=== PATIENT | female | born 1985 | race Caucasian/White ===

== ENCOUNTER 2018-10-30 00:14 | Inpatient (IN) | payer BC ==
[2018-10-30] MEDS ORDERED: Witch Hazel PAD* JAR ONE (01:07)
[2018-10-30] MEDS ORDERED: Dibucaine 1% 28.35 GM TUBE ONE (01:07)
[2018-10-30] MEDS ORDERED: Witch Hazel PAD* JAR TOPICAL PRN (01:17)
[2018-10-30] MEDS ORDERED: Glycerin ADULT SUPP PR PRN (01:17)
[2018-10-30] MEDS ORDERED: Dibucaine 1% 28.35 GM TUBE PR PRN (01:17)
[2018-10-30] MEDS ORDERED: OXYTOCIN* 10 UNITS/ML 1 ML VIAL IM ONE (01:17)
[2018-10-30] MEDS ORDERED: OXYTOCIN* 10 UNITS/ML 1 ML VIAL ONE (01:20)
--- NOTE | 2018-10-30 01:25 | HP ---
General Information - Reason for Visit Active labor - General Information Maternal Age: 33 Grav: 1 Para: 0 SAB: 0 IEA: 0 Estimated Due Date: 11/01/18 Determined By: LMP Gestational Age in Weeks/Days: 39-5/7 Maternal Blood Type and Rh: A Positive - Results this Serology/RPR Result: Non-Reactive Rubella Result: Immune HBsAg Result: Negative HIV Result: Negative GBS Culture Result: Negative Past Medical History Delivery History: Hx Uncomplicated Vaginal Delivery Delivery History Comment: 06/2016 7lb 11oz female at [facility] with Asia Diaz LM Pertinent Past Medical History: See Records Past Medical History Comment: Hypothyroidism on replacement Bi-polar disorder. Followed by psychiatry. On lamotrigine Pertinent Past Surgical History: See Records Past Surgical History Comment: H/O wisdom tooth extraction and appendectomy Pertinent Family History: See Records Family History Comment: Father: , DM PGM: , Cancer PGF: , heart disease MGM: , heart disease - Antepartal Records Antepartal Records: Reviewed, Uncomplicated Review of Systems Constitutional: Uncomfortable CV Complaint: No Respiratory: Shortness of Breath: No Gastrointestinal: No Nausea/Vomiting, Normal Bowel Movement Genitourinary: No Dysuria, No Bleeding, No Leaking Fluid Musculoskeletal: Back Pain, Contractions, Pressure Neurological: No Headache, No Visual Changes Movement: Normal Exam Allergies/Adverse Reactions: Allergies No Known Allergies Allergy (Verified 06/20/16 22:31) Difficult to assess on arrival as delivery imminent - Measurements Height: 5 ft 6 in Weight: 195 lb Body Mass Index (BMI): 31.4 Pre- Weight: 150 lb - Exam Breast: Breast Exam Deferred CVA: No CVA Tenderness Extremities: No Edema Heart: Normal Rhythm/Heart Sounds HEENT: No Significant Findings Lungs: Clear Bilaterally Rectal: Rectal Exam Deferred Reflexes: DTR 2+ Thyroid: No Thyromegaly - Abdominal Exam Abdomen Exam: Non-Tender Targeted Exam Findings See L&D Outpatient Visit Provider Note for Findings: N/A Estimated Weight: EFW 8.5-9lbs Cervical Exam: 8cm, 9cm Effacement: 100% Station: 0 Presenting Part: Vertex Membrane Status: Bulging Sterile Speculum Exam: Not done Bleeding/Discharge: None EFM Findings - External Monitor Findings Baseline Heart Rate: 125 External Monitor Findings: Accelerations Present, Variability Moderate, Variable or Late Deceleration Pattern Present External Monitor Findings Comment: Baseline 125bpm on arrival. Variables with UCs following SROM Contractions: Regular, Strong Contraction Frequency: q 2 min Assessment/Plan - Assessment IUP at 39-5/7 in active labor Category II FHT, doubt metabolic acidemia as delivery imminent - Plan Plan: Admit - Anticipate Vaginal Delivery Plan Comment: P: Admit. Anticipate - Date/Time of Admission Date of Admission: 10/30/18 Time of Admission: 00:24
--- NOTE | 2018-10-30 01:45 | PROCNOTE ---
[facility] OB: Delivery Note - Delivery A Date of : 10/30/18 Time of : 00:42 [place] Sex: Male Weight at : 9 lb Score 1 Minute: 4 Score 5 Minutes: 9 - 9 @ 10 min Gestational Age in Weeks and Days at Delivery: 39 Weeks and 5 Days Delivery Method: Spontaneous Vaginal Labor: Spontaneous Did Patient attempt ?: N/A, No Previous Amniotic Fluid: Clear Estimated Blood Loss: 300 Anesthesia/Analgesia: Nitrous-Labor Delivered By: Tess Connolly - Nursery Level of Nursery: Regular/Bedside - Perineum Perineal Injury: 2nd Degree - repaired with 3-0 Rapide under local infiltration 1% lidocaine. Anatomy restored and good hemostasis achieved. Pt tolerated well - Events Delivery Events of Note: Pitocin Only After Delivery - Additional Delivery Notes Additional Delivery Notes: Pt admitted in active labor. Spontaneous rupture of membranes to clear fluid led to onset pushing. Length of active labor 2 hours, 26 min. Pushed x 11 min. liveborn male. Slow, controlled delivery of head. OA to AMIRAH. Shoulders did not deliver. Shoulder dystocia identified. Pt to Guevara position. Hooper corkscrew done and then posterior arm released with resolution of dystocia. Time from delivery of head to delivery of body 50 seconds. initially stunned. After cord milked, cord clamped x 2 and cut. [place] transferred to special care nurse at the warmer. Tactile stimulation, bulb and wall suction, O2 by mask and CPAP x 30 seconds. Apgars 4/9/9. Good bilateral movement of upper extremities noted. returned to maternal abdomen. Spontaneous delivery intact placenta. Trailing membranes appeared complete. Fundus firm to massage. 10units IM pitocin given. Minimal bleeding noted. Repair as above. EBL 300mL. At time of note mother and infant in stable condition. Breast feeding initiated.
[2018-10-30] MEDS ORDERED: Lactated Ringers 1000 ML Bag* 1,000 ML IV SCH (02:00)
[2018-10-30] MEDS: Ibuprofen TAB* 600 MG PO PRN ×4 (02:49→21:23)
[2018-10-30] MEDS ORDERED: Simethicone TAB* 80 MG TAB.CHEW PO SCH (08:30)
[2018-10-30] MEDS ORDERED: Levothyroxine TAB* 25 MCG TAB ONE (08:43)
[2018-10-30] MEDS: Docusate CAP* 100 MG PO SCH ×3 (08:49→21:22)
[2018-10-30] MEDS: Acetaminophen TAB* 325 MG PO PRN ×2 (17:22→21:23)
[2018-10-30] MEDS ORDERED: lamoTRIgine TAB(*) 100 MG PO SCH (21:00)
[2018-10-31] MEDS ORDERED: Levothyroxine TAB* 50 MCG TAB PO SCH (06:00)
[2018-10-31 06:46] LABS: ABS Basophils 0.1 10^3/ul (0-0.2); ABS Eosinophils 0.1 10^3/ul (0-0.6); ABS Lymphocytes 1.9 10^3/ul (1.0-4.8); ABS Monocytes 0.9 10^3/ul (0-0.8); ABS Neutrophils 6.1 10^3/ul (1.5-7.7); ABS Nucleated RBC 0 10^3/ul; Hematocrit 33 % (35-47); Hemoglobin 11.2 g/dl (12.0-16.0); Lymphocyte % 20.9 %; Mean Corpuscular HGB Conc 34 g/dl (31-36); Mean Corpuscular Hemoglobin 31 pg (27-31); Mean Corpuscular Volume 91 fL (80-97); Mean Platelet Volume 9.2 fL (7.4-10.4); Nucleated Red Blood Cells % 0; Platelet Count 166 10^3/ul (150-450); Red Blood Count 3.68 10^6/ul (4.00-5.40); Red Cell Distribution Width 14 % (10.5-15)
[2018-10-31 08:19] VITALS: BP 104/70
[2018-10-31] MEDS ORDERED: Ferrous Gluconate TAB* 324 MG TAB PO SCH (09:00)
[2018-10-31] MEDS: Ibuprofen TAB* 600 MG PO PRN (10:17)
[2018-10-31] MEDS: Docusate CAP* 100 MG PO SCH (10:17)
== END 2018-10-31 14:33 | disposition home or self-care (01) | DRG 560 ==
LOC: MCHOBOUT 00:14 → MCHOB 00:24
PROVIDERS: ADMIT Midwife; ATTEND Midwife
PROC: 10E0XZZ Delivery of Products of Conception, External Approach (ICD-10-PCS; principal; 2018-10-30)
PROC: 0KQM0ZZ Repair Perineum Muscle, Open Approach (ICD-10-PCS; 2018-10-30)
DX: O99.284 Endocrine, nutritional and metabolic diseases complicating childbirth (principal); Z37.0 Single live birth; E03.9 Hypothyroidism, unspecified; O70.1 Second degree perineal laceration during delivery; O66.0 Obstructed labor due to shoulder dystocia; Z3A.39 39 weeks gestation of pregnancy
CPT/HCPCS: 36415; 85025; A9270-GY; J2590